=== PATIENT | male | born 1995 | race African-American/Black ===

== ENCOUNTER 2021-11-09 06:06 | Emergency (ER) | payer MEDICAID ==
[~2021-11-09] VITALS: Ht 182.9 cm; Wt 83.5 kg
[2021-11-09 06:10] VITALS: BP 141/96
[2021-11-09] MEDS ORDERED: KETOROLAC 60 MG/2 ML VIAL IM ONE (06:30)
[2021-11-09] MEDS ORDERED: LIDOCAINE MPF 1% 10 MG/ML VIAL INJ ONE (06:30)
[2021-11-09] MEDS ORDERED: BACITRACIN OINT 500 UNITS/GM PKT TP ONE (06:30)
[2021-11-09] MEDS ORDERED: DICYCLOMINE HCL LIQUID 20 MG, ALUMINUM HYD/MAG/SIMETHICONE 30 ML, LIDOCAINE VISCOUS 2% ... PO ONE ×3 (06:45)
[2021-11-09] MEDS ORDERED: ALUMINUM HYD/MAG/SIMETHICONE 30 ML UDC ONE (06:48)
[2021-11-09] MEDS ORDERED: DICYCLOMINE HCL LIQUID 10 MG/5 ML UDC ONE (06:49)
[2021-11-09] MEDS ORDERED: IBUP-2213 PO (07:53)
[2021-11-09] MEDS ORDERED: AMOX-1230 PO (07:53)
[2021-11-09] MEDS ORDERED: ONDA-188 PO (21:26)
== END 2021-11-09 08:03 | disposition home or self-care (01) ==
LOC: MED 06:06
DX: S61.411A Laceration without foreign body of right hand, initial encounter (principal); F17.200 Nicotine dependence, unspecified, uncomplicated; E10.9 Type 1 diabetes mellitus without complications; F12.90 Cannabis use, unspecified, uncomplicated; Z79.899 Other long term (current) drug therapy; Y04.2XXA Assault by strike against or bumped into by another person, initial encounter; Y93.89 Activity, other specified; Y92.89 Other specified places as the place of occurrence of the external cause; Y99.8 Other external cause status
CPT/HCPCS: 12001; 73130; 96372; 99283; J1885; J2001

== ENCOUNTER 2021-11-09 17:57 | Emergency (ER) | payer MEDICAID ==
[~2021-11-09] VITALS: Ht 182.9 cm; Wt 83.5 kg
[~2021-11-09 17:57] MED LIST: AMOX-1230 PO; IBUP-2213 PO
[2021-11-09 17:58] VITALS: BP 152/63
--- NOTE | 2021-11-09 18:09 | NUR ---
PT AMB TO BED 8.
[2021-11-09] MEDS ORDERED: ONDANSETRON 4 MG/2 ML VIAL IVP ONE (18:40)
[2021-11-09] MEDS ORDERED: KETOROLAC 15 MG/ML VIAL IVP ONE (18:40)
[2021-11-09] MEDS ORDERED: BACITRACIN OINT 500 UNITS/GM PKT TP ONE (18:51)
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
[2021-11-09 19:08] LABS: BASOPHILS % (AUTO) 0.5 % (0.0-2.0); EOSINOPHILS # (AUTO) 0.1 K/uL (0-0.4); EOSINOPHILS % (AUTO) 0.6 % (0.0-4.0); HEMATOCRIT 47.5 % (36-52); HEMOGLOBIN 15.5 g/dL (12.0-18.0); LYMPHOCYTES # (AUTO) 1.9 K/uL (2.0-11.5); LYMPHOCYTES % (AUTO) 19.7 % (20.5-51.1); MEAN CORPUSCULAR HEMOGLOBIN 28 pg (27-31); MEAN CORPUSCULAR HGB CONC 33 g/dL (33-37); MEAN CORPUSCULAR VOLUME 85.5 fL (80-94); MONOCYTES # (AUTO) 0.8 K/uL (0.8-1.0); MONOCYTES % (AUTO) 8.1 % (1.7-9.3); NEUTROPHILS # (AUTO) 6.9 K/uL (1.8-7.7); NEUTROPHILS % (AUTO) 71.1 % (42.2-75.2); PLATELET COUNT (AUTO) 278 K/uL (140-450); RED BLOOD CELL COUNT(AUTO) 5.55 MIL/uL (4.20-6.10); RED CELL DISTRIBUTION WIDTH 13.4 % (11.6-13.7); WHITE BLOOD COUNT (AUTO) 9.6 K/uL (4.8-10.8)
--- NOTE | 2021-11-09 19:13 | NUR ---
REPORT GIVEN TO JUAN LUIS QUINTANILLA. ALL QUESTIONS ANSWERED. TRANSFER OF CARE AT THIS TIME
[2021-11-09 19:19] LABS: ANION GAP 8.5 (8-16); CARBON DIOXIDE 30.3 mmol/L (21-32); CREATININE 1.6 mg/dL (0.6-1.3); POTASSIUM 5.8 mmol/L (3.5-5.1); TOTAL BILIRUBIN 0.6 mg/dL (0.0-1.0)
[2021-11-09] MEDS ORDERED: METOCLOPRAMIDE 10 MG/2 ML INJ VIAL IVP ONE (19:40)
--- NOTE | 2021-11-09 19:40 | NUR ---
awake and vomiting. orders received. accucheck = 299.
[2021-11-09] MEDS: NACL 0.9% 1,000 ML IV SCH ×2 (20:15→20:18)
[2021-11-09] MEDS: BACITRACIN OINT 500 UNITS/GM PKT TP SCH ×2 (20:16→20:18)
[2021-11-09] MEDS ORDERED: ONDA-188 PO (21:26)
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
[2021-11-09 21:35] VITALS: BP 152/63
--- NOTE | 2021-11-09 21:35 | NUR ---
Patient discharged with v/s stable. Written and verbal after care instructions given and explained. Patient alert, oriented and verbalized understanding of instructions. with steady gait. All questions addressed prior to discharge. ID band removed. Patient advised to follow up with PMD. Rx of ZOFRAN given. Patient educated on indication of medication including possible reaction and side effects. Opportunity to ask questions provided and answered.
== END 2021-11-09 21:35 | disposition home or self-care (01) ==
LOC: MED 17:57
DX: R11.2 Nausea with vomiting, unspecified (principal); E87.5 Hyperkalemia; E86.0 Dehydration; E10.22 Type 1 diabetes mellitus with diabetic chronic kidney disease; N18.9 Chronic kidney disease, unspecified; M79.641 Pain in right hand; F12.90 Cannabis use, unspecified, uncomplicated; I10 Essential (primary) hypertension; Z79.899 Other long term (current) drug therapy
CPT/HCPCS: 29125; 36415; 80053; 84132; 85025; 93005; 96361; 96374; 96375; 99284; J1885; J2405; J2765; J7030

== ENCOUNTER 2021-11-15 14:05 | Emergency (ER) | payer MEDICAID ==
[~2021-11-15] VITALS: Ht 182.9 cm; Wt 77.6 kg
[~2021-11-15 14:05] MED LIST changes: +ONDA-188 PO
[2021-11-15 14:17] VITALS: BP 114/91
--- NOTE | 2021-11-15 15:00 | NUR ---
ATTEMPTED TO BRING PT BACK, NOT FOUND IN LOBBY/OUTSIDE
--- NOTE | 2021-11-15 15:00 | NUR ---
PATIENT LEFT WITHOUT BEING SEEN BY DR. JI/JENNIFER WARD. NO FURTHER CARE PROVIDED FOR PATIENT.
--- NOTE | 2021-11-15 15:36 | NUR ---
JENNIFER DENNEY 2ND ATTEMPT TO BRING PT BACK, NOT FOUND IN LOBBY/OUTSIDE
== END 2021-11-15 15:00 | disposition left against medical advice (07) ==
LOC: MED 14:05
DX: Z48.02 Encounter for removal of sutures (principal); Z53.21 Procedure and treatment not carried out due to patient leaving prior to being seen by health care provider

== ENCOUNTER 2023-08-29 22:47 | Emergency (ER) | payer MEDICAID ==
[~2023-08-29] VITALS: Ht 182.9 cm; Wt 84.4 kg
[2023-08-29 23:11] VITALS: BP 138/85; PULSE 78; RESP 17; TEMP 98.1; O2SAT 97
[2023-08-29] MEDS ORDERED: LANTUS SUBQ (23:22)
[2023-08-29 23:28] VITALS: BP 138/85; PULSE 78; RESP 17; TEMP 98.1; O2SAT 97
== END 2023-08-29 23:30 | disposition home or self-care (01) ==
LOC: MED 22:47
DX: E10.9 Type 1 diabetes mellitus without complications (principal); Z76.0 Encounter for issue of repeat prescription; I10 Essential (primary) hypertension; Z79.899 Other long term (current) drug therapy
CPT/HCPCS: 82948; 99282

== ENCOUNTER 2023-10-27 11:48 | Emergency (ER) | payer SELFPAY ==
[~2023-10-27] VITALS: Ht 182.9 cm; Wt 83.9 kg
[~2023-10-27 11:48] MED LIST changes: +LANTUS SUBQ
[2023-10-27 12:34] VITALS: BP 109/88; PULSE 71; RESP 18; TEMP 97.2; O2SAT 98
[2023-10-27 13:40] LABS: BASOPHILS # (AUTO) 0.1 K/uL (0.00-0.22); BASOPHILS % (AUTO) 1.9 % (0.0-2.0); EOSINOPHILS # (AUTO) 0.3 K/uL (0-0.4); EOSINOPHILS % (AUTO) 6.1 % (0.0-4.0); HEMATOCRIT 45.4 % (36-52); HEMOGLOBIN 14.8 g/dL (12.0-18.0); LYMPHOCYTES % (AUTO) 44.3 % (20.5-51.1); MEAN CORPUSCULAR HEMOGLOBIN 28 pg (27-31); MEAN CORPUSCULAR HGB CONC 33 g/dL (33-37); MONOCYTES # (AUTO) 0.4 K/uL (0.8-1.0); MONOCYTES % (AUTO) 7.9 % (1.7-9.3); NEUTROPHILS # (AUTO) 1.8 K/uL (1.8-7.7); NEUTROPHILS % (AUTO) 39.8 % (42.2-75.2); PLATELET COUNT (AUTO) 294 K/uL (140-450); RED BLOOD CELL COUNT(AUTO) 5.28 MIL/uL (4.20-6.10); WHITE BLOOD COUNT (AUTO) 4.5 K/uL (4.8-10.8)
[2023-10-27 13:42] VITALS: BP 112/90; PULSE 73; RESP 18; TEMP 97.7; O2SAT 98
[2023-10-27 13:55] LABS: ANION GAP 8.7 (8-16); CALCIUM 9.1 mg/dL (8.5-10.1); CARBON DIOXIDE 31.1 mmol/L (21-32); CREATININE 1.4 mg/dL (0.6-1.3); POTASSIUM 4.8 mmol/L (3.5-5.1)
[2023-10-27 14:01] LABS: ALBUMIN 3.6 g/dL (3.4-5.0); BILIRUBIN,DIRECT 0.1 mg/dL (0.0-0.3); TOTAL BILIRUBIN 0.2 mg/dL (0.0-1.0); TOTAL PROTEIN, SERUM 7.2 g/dL (6.4-8.2)
[2023-10-27] MEDS ORDERED: AMOX875T3 PO (14:41)
[2023-10-27] MEDS ORDERED: IBUP-1842 PO (14:41)
== END 2023-10-27 14:50 | disposition home or self-care (01) ==
LOC: MED 11:48
DX: R59.1 Generalized enlarged lymph nodes (principal); I10 Essential (primary) hypertension; Z79.899 Other long term (current) drug therapy
CPT/HCPCS: 36415; 76536; 80048; 80076; 85025; 99284